=== PATIENT | female | born 1985 | race African-American/Black ===

== ENCOUNTER 2016-09-02 15:46 | Emergency (ER) | payer OTHER ==
[~2016-09-02] VITALS: Ht 175.3 cm; Wt 81.6 kg
[~2016-09-02 15:46] MED LIST: CIPRO 500MG TA500 MG PO; CIPRO250 M1 PO; DESONIDE15 G1 TOP; METRONIDAZOLE500 M1 PO; PERCOCET 325 MG1 TA2 PO; PERCOCET 5-3251 EACH PO; PYRIDIUM200 MG PO; TRIAMCINOLONE A15 G3 TOP; ZINC CHELATED50 MG PO
[2016-09-02 15:53] VITALS: BP 125/80
--- NOTE | 2016-09-02 17:33 | ED GI/GU/ABDOMINAL COMPLAINT ---
History of Present Illness General Chief Complaint: Female Urogenital Problems Stated Complaint: UTI Source: patient, old records Exam Limitations: no limitations Vital Signs & Intake/Output Vital Signs & Intake/Output Vital Signs Date Time Temp Pulse Resp B/P B/P Pulse O2 O2 Flow FiO2 Mean Ox Delivery Rate 09/02 1553 97.4 69 16 125/80 99 Room Air ED Intake and Output 09/03 0000 09/02 1200 Intake Total Output Total Balance Patient 180 lb Weight Weight Reported by Patient Measurement Method Allergies Coded Allergies: NO KNOWN ALLERGIES (10/22/13) Reconcile Medications Ciprofloxacin HCl (Cipro) 250 MG TABLET 1 TAB PO BID URINE INFECTION Ciprofloxacin HCl (Cipro) 500 MG TABLET 1 TAB PO BID urinary tract infection Desonide 0.05 % OINT...G. 1 VINCE TOP BID SKIN (Reported) apply to affected area(s) Ibuprofen 800 MG TABLET 1 TAB PO Q8 PRN PAIN Metronidazole 500 MG TABLET 1 TAB PO BID ANTIBIOTIC (Reported) Oxycodone HCl/Acetaminophen (Percocet 5-325 MG Tablet) 5 MG-325 MG TABLET 1-2 TAB PO Q6P PRN PAIN Tramadol HCl 50 MG TABLET 1-2 TAB PO Q6 PRN pain Triamcinolone Acetonide 0.1 % OINT...G. 1 VINCE TOP BID SKIN (Reported) apply to affected area(s) ZINC (Zinc Chelated) (Unknown Strength) TABLET (Unknown Dose) PO DAILY SUPPLEMENT (Reported) Triage Note: PT STATES SHE IS HAVING BURNING ON URINATION THAT STARTED THIS AM. Triage Nurses Notes Reviewed? yes ? n Is pt currently ? No HPI: Patient is a 31-year-old female presents complaining of dysuria, urgency, frequency, suprapubic discomfort. Symptoms onset this morning. Patient reports that symptoms are currently severe. Patient has not taken any medication for her symptoms today. Patient is unsure when her last menstrual period occurred. Patient is sexually active, does not use contraceptives. Positive associated chills. Patient denies vaginal discharge, fevers, vomiting. (DO JEREZ) Past History Travel History Traveled to [place] past 21 day No Medical History Any Pertinent Medical History? see below for history Neurological: NONE EENT: NONE Cardiovascular: NONE Respiratory: NONE Gastrointestinal: NONE Hepatic: NONE Renal: CHRONIC UTI Musculoskeletal: SCOLIOSIS Psychiatric: NONE Endocrine: NONE Blood Disorders: NONE Cancer(s): NONE RECONCILIATION ANALYST/Reproductive: genital herpes Surgical History Surgical History: back surgeries Psychosocial History What is your primary language Bengali Tobacco Use: Never used ETOH Use: occasional use Illicit Drug Use: denies illicit drug use Family History Hx Contributory? No (DO JEREZ) Review of Systems Review of Systems Constitutional: Reports: chills. Denies: fever. EENTM: Reports: no symptoms. Respiratory: Denies: cough, short of breath. Cardiovascular: Denies: chest pain. GI: Reports: abdominal pain (suprapubic pressure). Genitourinary: Reports: see HPI. Musculoskeletal: Denies: back pain. Skin: Reports: no symptoms. Neurological/Psychological: Reports: no symptoms. Hematologic/Endocrine: Reports: no symptoms. Immunologic/Allergic: Reports: no symptoms. (DO JEREZ) Physical Exam Physical Exam General Appearance: well developed/nourished, alert, awake Head: atraumatic, normal appearance Eyes: Bilateral: normal appearance, PERRL, EOMI. Ears, Nose, Throat, Mouth: hearing grossly normal, moist mucous membrane Neck: normal inspection, supple, full range of motion Respiratory: normal breath sounds, chest non-tender, no respiratory distress, lungs clear Cardiovascular: regular rate/rhythm Gastrointestinal: normal bowel sounds, soft, mild suprapubic tenderness. Negative McBurney's point tenderness Back: normal inspection, normal range of motion, no CVA tenderness Extremities: normal range of motion Neurologic/Psych: no motor/sensory deficits, awake, alert, oriented x 3, normal gait, normal mood/affect Skin: intact, normal color, warm/dry Core Measures ACS in differential dx? No Severe Sepsis Present: No Septic Shock Present: No (DO JEREZ) Progress Differential Diagnosis: appendicitis, biliary colic, cholecystitis, diverticulitis, ectopic , endometritis, intrauterine , ovarian cyst, ovarian torsion, PID/cervicitis, UTI/pyelo Plan of Care: Orders Procedure Date/time Status URINE 09/02 174 Complete Add-on Test (ER Only) 09/02 1623 Active CULTURE,URINE 09/02 1549 Active URINALYSIS 09/02 1549 Complete Laboratory Tests 09/02/16 1746: Urine Test NEGATIVE 09/02/16 1554: Urine Color YEL, Urine Clarity HAZY H, Urine pH 6.0, Ur Specific [place] 1.025, Urine Protein TRACE H, Urine Ketones NEG, Urine Nitrite NEG, Urine Bilirubin NEG, Urine Urobilinogen 0.2, Ur Leukocyte Esterase SMALL H, Ur Microscopic SEDIMENT EXAMINED, Urine WBC 15-25 H, Ur Epithelial Cells MOD H, Urine Bacteria FEW H, Urine Mucus MANY H, Urine Hemoglobin TRACE-INTACT, Urine Glucose NEG Microbiology 09/02 1554 URINE ROUT: Urine Culture - RES GRAM NEGATIVE RODS BETA STREP GROUP B Results of urinalysis and urine test discussed with patient. Patient afebrile, nontoxic-appearing. Appears stable for discharge with oral antibiotics. (DO JEREZ) Initial ED EKG: none (DO JEREZ) Departure Departure Time of Disposition: 1806 Disposition: HOME OR SELF CARE Condition: Stable Clinical Impression Primary Impression: Urinary tract infection Qualifiers: Urinary tract infection type: acute cystitis Hematuria presence: without hematuria Qualified Code: N30.00 - Acute cystitis without hematuria Referrals: PATIENT HAS NO PRIMARY CARE DR (PCP/Family) Additional Instructions: Follow-up with your urologist or with your mining technician for further evaluation. Return to the emergency department if fevers, increasing pain, vomiting, or worsening of symptoms. Departure Forms: Customer Survey General Discharge Information Prescriptions: Current Visit Scripts Ciprofloxacin HCl (Cipro) 1 TAB PO BID #14 TAB Ibuprofen 1 TAB PO Q8 PRN PAIN #20 TAB Tramadol HCl 1-2 TAB PO Q6 PRN pain #15 TAB (DO JEREZ) PA/APARTMENT RENTAL CLERK Co-Sign Statement Statement: ED Attending supervision documentation- [] I saw and evaluated the patient. I have also reviewed all the pertinent lab results and diagnostic results. I agree with the findings and the plan of care as documented in the PA's/APARTMENT RENTAL CLERK's documentation. [X] I have reviewed the ED Record and agree with the PA's/APARTMENT RENTAL CLERK's documentation. [] Additions or exceptions (if any) to the PAs/APARTMENT RENTAL CLERK's note and plan are summarized below: [] (MARTELL QUIROZ DO)
[2016-09-02] MEDS ORDERED: TRAMADOL HCL50 M1 PO (18:10)
[2016-09-02] MEDS ORDERED: CIPRO500 M1 PO (18:10)
[2016-09-02] MEDS ORDERED: IBUPROFEN800 M1 PO (18:10)
== END 2016-09-02 18:21 ==
LOC: ERH 15:46
DX: N39.0 Urinary tract infection, site not specified (principal)
CPT/HCPCS: 81001; 81025; 87086; 87147